=== PATIENT | female | born 1995 | race Caucasian/White ===

== ENCOUNTER 2021-02-06 04:04 | Inpatient (IN) ==
[2021-02-06] MEDS ORDERED: LACTATED RINGER'S 1,000 ML IV PRN (04:45)
[2021-02-06] MEDS ORDERED: OXYTOCIN 30 UNITS/500 ML BAG IV PRN ×3 (04:45→11:22)
[2021-02-06 06:16] LABS: Hematocrit (blood only) 36.1 % (37-47); Hemoglobin 12.1 g/dL (12.0-16.0); Mean Corpuscular Volume 83.6 fL (80-100); Mean Platelet Volume 10.2 fL (7.4-10.4); Platelet Count 315 K/uL (130-400); RDW Coefficient of Variation 13.1 % (11.5-14.5); RDW Standard Deviation 39.9 fL (36.4-46.3); Red Blood Count 4.32 M/uL (4.2-5.4); White Blood Count 12.64 K/uL (4.8-10.8)
[2021-02-06 06:17] LABS: Mean Corpuscular Hgb Conc 33.5 g/dL (32-36)
[2021-02-06] MEDS ORDERED: ePHEDrine sulfate 50 MG/ML AMP ONE (07:11)
[2021-02-06] MEDS ORDERED: SODIUM CHLORIDE 0.9% INJ 10 ML VIAL ONE (07:11)
[2021-02-06] MEDS ORDERED: BUPIVACAINE 0.25% 30 ML VIAL ONE (07:11)
[2021-02-06] MEDS ORDERED: fentaNYL citrate 100 MCG/2 ML VIAL ONE (07:12)
[2021-02-06] MEDS ORDERED: fentaNYL 2MCG/ML ROPIVACAINE 1.25MG/ML 100 ML BAG EPI ONE (07:12)
[2021-02-06] MEDS ORDERED: ONDANSETRON INJ 2 MG/ML 2 ML VIAL IV PRN (07:28)
[2021-02-06] MEDS ORDERED: NALOXONE HCL 1 MG in SODIUM CHLORIDE 0.9% 1000ML 1,000 ML IV PRN (07:28)
[2021-02-06] MEDS ORDERED: diphenhydrAMINE 50 MG/ML VIAL IV PRN (07:28)
[2021-02-06] MEDS ORDERED: ePHEDrine sulfate 50 MG/ML AMP IV PRN (07:28)
[2021-02-06] MEDS ORDERED: fentaNYL 2MCG/ML ROPIVACAINE 1.25MG/ML 100 ML BAG EPI PRN (07:28)
[2021-02-06] MEDS ORDERED: NALOXONE HCL 0.4 MG/1 ML VIAL/CARP IV PRN (07:28)
--- NOTE | 2021-02-06 07:40 | Obstetrical Progress Note ---
Date of Service February 06, 2021 Assessment & Plan Admission and Anticipated Discharge Date Admission Date: February 06, 2021 Subjective Patient came back with more intense contractions, started around 2 am. Her cerv ix was changed to 4-5 cm and admitted. Desires epidural for pain. No change in medical history since 02/04 VE: 5-6 cm/ 70%/ -2, bulging tight bag FHR categ I Doyline ctxs q 2-6 min Epidural for pain and anticipate Will sign out to Dr Timmons. Results & Data ([facility]) Vital Signs (Past 12 Hours) Vital Signs Temp Pulse Resp BP Pulse Ox 02/06/21 07:33 85 98 02/06/21 07:28 79 98 02/06/21 07:23 67 99 02/06/21 07:18 62 98 02/06/21 07:13 60 98 02/06/21 07:08 69 100 02/06/21 07:03 60 99 02/06/21 07:02 66 110/63 02/06/21 07:00 36.9 C 18 02/06/21 04:15 36.6 C 18 02/06/21 04:13 79 134/70
--- NOTE | 2021-02-06 07:42 | Anesthesiology Consultation ---
Date of Service February 06, 2021 Assessment & Plan Chart Review Chart Review: Patient NOT seen in Pre Admission Testing and Acceptable Risk for Labor Epidural Consults Requested none ASA ASA2 Proposed Anesthesia Anesthesia Type: Labor Epidural and CSE Risk / Benefits Reviewed With: PT / POA / Parent / Guardian, Accepts Plan and Informed Consent Obtained History Surgery Covid 19 negative on 02/03/21. Height/Weight Height: 5 ft 3 in Weight: 82.554 kg Allergies Allergy/AdvReac Type Severity Reaction Status Date / Time mushroom Allergy Severe ANAPHYLAXIS Verified 02/04/21 13:54 No Known Drug Allergies Allergy Unknown none Verified 02/04/21 13:54 Medications Home Medications Medication Instructions Recorded Confirmed Last Taken Medical Marijuana INHALATION PRN 08/19/20 02/05/21 12:00 prenat.vits,isabelle,[id number] 1 tab PO DAILY 08/19/20 02/06/21 02/05/21 12:00 Active Medications Generic Name Dose Route Start Last Admin Trade Name Freq PRN Reason Stop Dose Admin Lactated Ringer's 1,000 mls @ 125 mls/hr 02/06/21 04:45 02/06/21 06:15 Lr IV 02/08/21 04:44 Infused .Q8H PRN Infusion L&D Protocol Protocol NPO Date Last Intake of Fluids: 02/06/21 Time Last Intake of Fluids: 05:00 Date Last Intake of Solids: 02/05/21 Time Last Intake of Solids: 21:00 Past Medical History Medical History Anxiety disorder Migraine PTSD (post-traumatic stress disorder) Seizure-like activity Smoker Exercise / Class Metabolic Activity II 4-5 Yardwork/Stairs/Walk up hill Past Family History Family History Mother Cancer Grandmother Cancer Past Surgical History Surgical History History of surgery on arm History of wisdom tooth extraction Past Anesthesia History No Hx of Anesthesia Complications and No Family Hx of Anesthesia Complications History of PONV No Hx of PONV and History of PONV Social History Smoking Status: Current every day smoker tobacco type: cigarettes Smoking cigarettes per day: 10 Hx Alcohol Use: No Hx Substance Use: Yes substance use type: marijuana Substance Use Type Other:: has a medical card Last Used Substance: Days (ago) Last Used Substance Other:: 4/8/21 Review of Systems no chest pain or sob Physical Exam Vital Signs Last Vital Signs Temp 36.9 C 02/06/21 07:00 Pulse 85 02/06/21 07:33 Resp 18 02/06/21 07:00 BP 110/63 02/06/21 07:02 Pulse Ox 98 02/06/21 07:33 ENMT Mouth: no TMJ abnormality Thyromental Distance: > or= 3.5 Finger Breadths Mallampati Class: II Neck normal visual inspection Respiratory normal respiratory effort Auscultation: lungs clear to auscultation bilaterally Cardiovascular Rate/Rhythm: regular rate and regular rhythm Musculoskeletal Spine: normal cervical ROM Neurologic moves all extremities Psychiatric Orientation: alert and oriented x 3 Testing Laboratory Results 02/06/21 06:04
[2021-02-06] MEDS ORDERED: OXYTOCIN 30 UNITS/500 ML BAG IV ONE (08:43)
--- NOTE | 2021-02-06 08:45 | Obstetrical Progress Note ---
Date of Service February 06, 2021 Assessment & Plan Admission and Anticipated Discharge Date Admission Date: February 06, 2021 Physical Exam Genitourinary: OB Exam Abdomen: + vertex Manual OB Exam: + cervical dilation 6 cm, + cervical effacement 90%, + station -1 and + amniotic fluid meconium OB Exam Monitor Tracing: + external FHT monitor used, + external uterine monitor used, + category I and + normal FHT variability AROM with Amni-hook light meconium Results & Data ([facility]) Vital Signs (Past 12 Hours) Vital Signs Temp Pulse Resp BP Pulse Ox 02/06/21 08:40 74 135/65 02/06/21 08:38 78 97 02/06/21 08:33 77 99 02/06/21 08:28 61 97 02/06/21 08:23 70 132/66 97 02/06/21 08:20 18 02/06/21 08:18 69 138/63 98 02/06/21 08:15 78 131/71 02/06/21 08:13 81 97 02/06/21 08:08 78 98 02/06/21 08:07 81 125/57 L 02/06/21 08:05 75 144/66 H 02/06/21 08:03 88 136/91 99 02/06/21 08:01 72 138/96 02/06/21 07:59 87 135/60 02/06/21 07:58 78 96 02/06/21 07:57 77 128/70 02/06/21 07:53 98 H 98 02/06/21 07:49 77 118/73 02/06/21 07:48 87 99 02/06/21 07:43 74 97 02/06/21 07:38 74 98 02/06/21 07:33 85 98 02/06/21 07:28 79 98 02/06/21 07:23 67 99 02/06/21 07:18 62 98 02/06/21 07:13 60 98 02/06/21 07:08 69 100 02/06/21 07:03 60 99 02/06/21 07:02 66 110/63 02/06/21 07:00 36.9 C 18 02/06/21 04:15 36.6 C 18 02/06/21 04:13 79 134/70
--- NOTE | 2021-02-06 11:17 | Delivery Summary ---
Vaginal Delivery Summary Date of Service February 06, 2021 Vaginal Delivery Summary Delivery Note live male over intact perineum with delayed cord clamping and nuchal cord x1 reduced at delivery. Apgars 8/9 weight pending. Cord blood obtained followed by spontaneous delivery of intact placenta. No tears. EBL 100 ml. Final sponge and instrument count are correct. Mom and baby stable.
[2021-02-06 11:20] LABS: Amphetamines+Metham, Urine Neg (Neg); Barbiturates, Urine Neg (Neg); Benzodiazepine, Urine Neg (Neg); Cocaine, Urine Neg (Neg); MDMA (Ecstacy), Urine Neg (Neg); Methadone, Urine Neg (Neg); Opiate, Urine Neg (Neg); Phencyclidine, Urine Neg (Neg)
[2021-02-06] MEDS ORDERED: bisacodyL 10 MG SUPP PR PRN (11:22)
[2021-02-06] MEDS ORDERED: SUPERCREAM 0.870% 15 GM JAR EXT PRN (11:22)
[2021-02-06] MEDS ORDERED: DIPHTHERIA/TETANUS/PERTUSSIS 0.5 ML SYR/VIAL IM ONE (11:22)
[2021-02-06] MEDS ORDERED: HYDROCORTISONE ACETATE 25 MG SUPP PR PRN (11:22)
[2021-02-06] MEDS ORDERED: BENZOCAINE 20% AER SPR 82.5 GM CAN EXT PRN (11:22)
--- NOTE | 2021-02-06 12:42 | Anesthesia Procedure Note ---
Date of Service February 06, 2021 Anesthesia Post Epidural Note Vital Signs Vital Signs: Temp Pulse Resp BP Pulse Ox 37.0 C 68 20 118/58 L 95 02/06/21 10:25 02/06/21 12:38 02/06/21 11:38 02/06/21 12:38 02/06/21 11:04 Pain Intensity Abdomen: Pain Intensity: 0 Notes Mental Status: alert / awake / arousable and participated in evaluation Nausea / Vomiting: adequately controlled Pain: adequately controlled Airway Patency, RR, SpO2: stable & adequate BP & HR: stable & adequate Hydration State: stable & adequate Neuraxial Anesthesia: was administered and sensory block is resolving Anesthetic Complications: no major complications apparent and Pt Satisfied with anesthetic care Epidural: Removed without complications and With tip intact
[2021-02-06] MEDS: IBUPROFEN 600 MG TAB PO PRN ×2 (16:21→20:09)
[2021-02-06] MEDS: DOCUSATE SODIUM 100 MG CAP PO SCH (20:10)
[2021-02-06] MEDS: ACETAMINOPHEN 325 MG TAB PO PRN (21:48)
[2021-02-07] MEDS: IBUPROFEN 600 MG TAB PO PRN ×2 (00:06→08:45)
[2021-02-07] MEDS: ACETAMINOPHEN 325 MG TAB PO PRN (03:20)
[2021-02-07 06:07] LABS: Hematocrit (blood only) 33.1 % (37-47); Mean Corpuscular Hemoglobin 27.7 pg (25-34); Mean Corpuscular Hgb Conc 33.2 g/dL (32-36); Mean Corpuscular Volume 83.4 fL (80-100); Mean Platelet Volume 10.3 fL (7.4-10.4); Platelet Count 250 K/uL (130-400); RDW Standard Deviation 39.4 fL (36.4-46.3); Red Blood Count 3.97 M/uL (4.2-5.4); White Blood Count 12.87 K/uL (4.8-10.8)
[2021-02-07] MEDS ORDERED: PRENATAL VITAMIN 1 TAB PO SCH (08:00)
[2021-02-07] MEDS ORDERED: FERROUS SULFATE 325 MG TAB PO SCH (08:00)
[2021-02-07] MEDS: DOCUSATE SODIUM 100 MG CAP PO SCH (08:45)
[2021-02-07] MEDS ORDERED: NON-FORMULARY MEDICATION (Prenat.Vits,Cal,Min-Iron-Folic tablet) PO SCH (09:00)
--- NOTE | 2021-02-07 09:27 | Obstetrical Progress Note ---
Date of Service February 07, 2021 Assessment & Plan Admission and Anticipated Discharge Date Admission Date: February 06, 2021 Subjective PPD#1 doing well tolerating diet passing gas out of bed Physical Exam Constitutional: WD/WN, vitals as above well developed and comfortable abdomen soft and non-tender fundus firm below U no edema neg Yaw's for d/c home Results & Data ([facility]) Vital Signs (Past 12 Hours) Vital Signs Temp Pulse Resp BP Pulse Ox 02/07/21 07:55 36.8 C 60 18 112/74 100 02/07/21 03:15 36.5 C 50 L 16 146/80 H 99 02/06/21 23:15 36.6 C 53 L 16 102/64 98 Laboratory Results Laboratory Results - last 48 hr 02/06/21 02/06/21 02/07/21 06:04 10:26 05:57 WBC 12.64 H 12.87 H RBC 4.32 3.97 L Hgb 12.1 11.0 L Hct 36.1 L 33.1 L MCV 83.6 83.4 MCH 28.0 27.7 MCHC 33.5 33.2 RDW Std Deviation 39.9 39.4 RDW Coeff of [place] 13.1 13.0 Plt Count 315 250 MPV 10.2 10.3 Urine Opiates Screen Neg Ur Methadone, Qual Neg Urine Barbiturates Neg Ur Phencyclidine (PCP) Neg U Amphetamin/Meth Scrn Neg MDMA (Ecstasy) Screen Neg U Benzodiazepines Scrn Neg Ur Cocaine Metabolite Neg U Marijuana (THC) Screen Pos H
[2021-02-07] MEDS ORDERED: bisacodyL 5 MG TABEC PO SCH (20:00)
[2021-02-08 23:46] LABS: Marijuana Quant, GCMS Urine 180 ng/mL (<5)
== END 2021-02-07 13:45 | disposition home or self-care (01) | DRG 807 ==
LOC: OPB 04:04 → 4S1 04:05 → 4S2 13:23